=== PATIENT | male | born 1930 | race Asian ===

== ENCOUNTER 2017-09-28 12:43 | Inpatient (IN) | payer OTHER ==
[~2017-09-28] VITALS: Ht 170.2 cm; Wt 60.3 kg
[2017-09-28 14:49] LABS: microscopic required? NO
[2017-09-28 14:58] LABS: urine erythrocyte NEGATIVE (NEGATIVE)
[2017-09-28 15:22] LABS: BASOPHIL % 0.3 % (0-2); PLATELET COUNT 133 x10^3mcL (130-400); RED CELL DISTRIBUTION WIDTH 13.5 % (11.5-14.5)
[2017-09-28] MEDS ORDERED: ZOLOFT50 MG PO (15:35)
[2017-09-28] MEDS ORDERED: ALENDRONATE SOD70 M2 PO (15:35)
[2017-09-28] MEDS ORDERED: ENABLEX15 M1 PO (15:35)
[2017-09-28] MEDS ORDERED: NAMENDA XR28 MG PO (15:37)
[2017-09-28] MEDS ORDERED: NATURE'S BLEND500 M3 PO (15:39)
[2017-09-28] MEDS ORDERED: PATADAY2.5 ML OU (15:41)
[2017-09-28] MEDS ORDERED: CLOPIDOGREL75 M1 PO (15:41)
[2017-09-28] MEDS ORDERED: TAB-A-VITE1 TA1 PO (15:41)
[2017-09-28 15:42] LABS: CALCIUM 9.4 mg/dL (8.5-10.1); CARBON DIOXIDE 27.1 mmol/L (21-32); CHLORIDE SERUM 108 mmol/L (98-107); GLUCOSE SERUM 107 mg/dL (74-106); POTASSIUM SERUM 4.1 mmol/L (3.5-5.1); SODIUM SERUM 142 mmol/L (136-145)
[2017-09-28 16:02] LABS: ALKALINE PHOSPHATASE 106 U/L (46-116); ALT/SGPT 17 U/L (16-63); AST/SGOT 22 U/L (15-37); BILIRUBIN TOTAL 0.39 mg/dL (0.20-1.00)
[2017-09-28 16:16] LABS: ALBUMIN 3.2 g/dL (3.4-5.0)
[2017-09-28 16:17] LABS: CK-MB 3.2 ng/mL (0-3.6)
[2017-09-28 17:04] LABS: T3 TOTAL 0.86 ng/mL
[2017-09-28 17:06] LABS: AMPHETAMINE QUAL UR NONE DETECTED (NEG <=1000)
[2017-09-28 17:15] LABS: CHOLESTEROL/HDL RATIO 3.8; MAGNESIUM 2.3 mg/dL (1.8-2.4); PHOSPHOROUS 1.9 mg/dL (2.5-4.9)
[2017-09-28 17:16] VITALS: BP 156/86
[2017-09-28 17:24] VITALS: Ht 170.2 cm; Wt 60.3 kg
[2017-09-28 17:24] LABS: FREE T4 0.85 ng/dL (0.76-1.46); FREE THYROXINE INDEX 2.3 ug/dL (1.4-4.5); T4(THYROXINE) 6.8 ug/dL (4.7-13.3)
[2017-09-28 21:01] VITALS: BP 148/72
[2017-09-29] VITALS (7 sets, daily range): BP systolic 123–172; BP diastolic 64–97
[2017-09-29 06:35] LABS: CALCIUM 8.6 mg/dL (8.5-10.1); CARBON DIOXIDE 25.2 mmol/L (21-32); CHLORIDE SERUM 110 mmol/L (98-107); GLUCOSE SERUM 104 mg/dL (74-106); POTASSIUM SERUM 3.7 mmol/L (3.5-5.1); SODIUM SERUM 143 mmol/L (136-145)
[2017-09-29 06:51] LABS: BASOPHIL % 0.6 % (0-2); PLATELET COUNT 134 x10^3mcL (130-400); RED CELL DISTRIBUTION WIDTH 13.8 % (11.5-14.5)
[2017-09-30 06:20] VITALS: BP 137/64
[2017-09-30 06:35] LABS: BASOPHIL % 0.4 % (0-2); PLATELET COUNT 153 x10^3mcL (130-400); RED CELL DISTRIBUTION WIDTH 13.7 % (11.5-14.5)
[2017-09-30 06:54] LABS: CHLORIDE SERUM 108 mmol/L (98-107); CREATININE SERUM 1.2 mg/dL (0.7-1.3); GLUCOSE SERUM 132 mg/dL (74-106); POTASSIUM SERUM 3.5 mmol/L (3.5-5.1); SODIUM SERUM 142 mmol/L (136-145)
[2017-09-30] MEDS ORDERED: XARELTO15 M1 PO (09:13)
[2017-09-30 11:26] VITALS: BP 137/64
[2017-09-30] MEDS ORDERED: LOSARTAN POTASS50 M1 PO (11:35)
== END 2017-09-30 13:20 | disposition home health service (06) | DRG 299 ==
LOC: ED 12:43 → DU 15:57
PROVIDERS: Emergency Medicine; Family Medicine
DX: I82.411 Acute embolism and thrombosis of right femoral vein (principal); N17.0 Acute kidney failure with tubular necrosis; G30.9 Alzheimer's disease, unspecified; F02.80 Dementia in other diseases classified elsewhere, unspecified severity, without behavioral disturbance, psychotic disturbance, mood disturbance, and anxiety; I16.0 Hypertensive urgency; I10 Essential (primary) hypertension; E86.0 Dehydration; E83.39 Other disorders of phosphorus metabolism; F32.9 Major depressive disorder, single episode, unspecified; M81.0 Age-related osteoporosis without current pathological fracture; D63.8 Anemia in other chronic diseases classified elsewhere; E78.5 Hyperlipidemia, unspecified; N32.81 Overactive bladder; Z68.20 Body mass index [BMI] 20.0-20.9, adult; Z85.46 Personal history of malignant neoplasm of prostate
CPT/HCPCS: 83880; 84439; J1200; J1644; J2310; J7030; Q0092

== ENCOUNTER 2018-10-17 13:41 | Inpatient (IN) | payer OTHER ==
[~2018-10-17] VITALS: Ht 170.2 cm; Wt 55.9 kg
[~2018-10-17 13:41] MED LIST: ALENDRONATE SOD70 M2 PO; CLOPIDOGREL75 M1 PO; ENABLEX15 M1 PO; LOSARTAN POTASS50 M1 PO; NAMENDA XR28 MG PO; NATURE'S BLEND500 M3 PO; PATADAY2.5 ML OU; TAB-A-VITE1 TA1 PO; XARELTO15 M1 PO; ZOLOFT50 MG PO
[2018-10-17 14:43] VITALS: Ht 170.2 cm; Wt 55.9 kg
[2018-10-17 15:59] LABS: PLATELET COUNT 149 x10^3mcL (130-400); RED CELL DISTRIBUTION WIDTH 14.1 % (11.5-14.5)
[2018-10-17 16:26] LABS: ALKALINE PHOSPHATASE 100 U/L (46-116); ALT/SGPT 23 U/L (16-63); AST/SGOT 34 U/L (15-37); CALCIUM 8.4 mg/dL (8.5-10.1); CARBON DIOXIDE 28.7 mmol/L (21-32); CHLORIDE SERUM 103 mmol/L (98-107); CREATININE SERUM 1.4 mg/dL (0.7-1.3); FREE T4 0.99 ng/dL (0.76-1.46); GLUCOSE SERUM 187 mg/dL (74-106); LIPASE 55 IU/L (73-393); SODIUM SERUM 141 mmol/L (136-145); TOTAL PROTEIN, SERUM 6.5 g/dL (6.4-8.2)
[2018-10-17 16:29] LABS: ALBUMIN 2.8 g/dL (3.4-5.0)
[2018-10-17 16:30] LABS: POTASSIUM SERUM 2.3 mmol/L (3.5-5.1)
[2018-10-17 16:34] LABS: BAND NEUTROPHIL 8 % (0-10); METAMYELOCTE 7 % (0-2); MONOCYTE 4 % (0-7); MYELOCYTE 1 % (0-2); SEGMENTED NEUTROPHILS 79 % (37-75)
[2018-10-17 16:35] LABS: rbc morphology (normal/abnorm) NORMAL (NORMAL)
[2018-10-17 16:36] LABS: PLATELET MORPHOLOGY FEW LARGE PLATELET
[2018-10-17 16:45] LABS: microscopic required? YES; urine erythrocyte NEGATIVE (NEGATIVE)
[2018-10-17 17:08] VITALS: BP 126/62
[2018-10-17 17:11] LABS: AMPHETAMINE QUAL UR NONE DETECTED (See below)
[2018-10-17 17:30] LABS: CHOLESTEROL/HDL RATIO 2.5; MAGNESIUM 1.7 mg/dL (1.8-2.4)
[2018-10-17 17:33] LABS: PHOSPHOROUS 0.7 mg/dL (2.5-4.9)
[2018-10-17 18:25] VITALS: BP 118/58
[2018-10-17] MEDS ORDERED: XARELTO10 M1 PO (19:06)
[2018-10-17 21:07] VITALS: BP 111/59
[2018-10-18 05:28] VITALS: BP 75/38
[2018-10-18 05:30] VITALS: BP 101/45
[2018-10-18 07:11] LABS: ALKALINE PHOSPHATASE 69 U/L (46-116); ALT/SGPT 28 U/L (16-63); AST/SGOT 65 U/L (15-37); BILIRUBIN TOTAL 0.77 mg/dL (0.20-1.00); CALCIUM 7.1 mg/dL (8.5-10.1); CARBON DIOXIDE 20.9 mmol/L (21-32); CHLORIDE SERUM 109 mmol/L (98-107); CREATININE SERUM 1.5 mg/dL (0.7-1.3); GLUCOSE SERUM 95 mg/dL (74-106); SODIUM SERUM 143 mmol/L (136-145)
[2018-10-18 07:12] LABS: TOTAL PROTEIN, SERUM 4.8 g/dL (6.4-8.2)
[2018-10-18 07:13] LABS: POTASSIUM SERUM 2.7 mmol/L (3.5-5.1)
[2018-10-18 07:17] LABS: MAGNESIUM 2.1 mg/dL (1.8-2.4); PHOSPHOROUS 2.3 mg/dL (2.5-4.9)
[2018-10-18 07:55] LABS: RED CELL DISTRIBUTION WIDTH 14.3 % (11.5-14.5)
[2018-10-18 08:06] LABS: PLATELET COUNT 86 x10^3mcL (130-400)
[2018-10-18 09:42] VITALS: BP 95/43
[2018-10-18 11:00] LABS: ATYPICAL LYMPH 1 %; BAND NEUTROPHIL 22 % (0-10); BASOPHIL 0 % (0-2); MONOCYTE 5 % (0-7); SEGMENTED NEUTROPHILS 66 % (37-75)
[2018-10-18 11:01] LABS: rbc morphology (normal/abnorm) ABNORMAL (NORMAL)
[2018-10-18 11:02] LABS: PLATELET MORPHOLOGY PLATELETS DECREASED; acanthocyte (spur cell) 1+
[2018-10-18 12:25] VITALS: BP 136/79
[2018-10-18 18:15] VITALS: BP 157/85
[2018-10-18 20:43] VITALS: BP 137/82
[2018-10-19 05:55] VITALS: BP 125/72
[2018-10-19 06:28] LABS: PLATELET COUNT 59 x10^3mcL (130-400); RED CELL DISTRIBUTION WIDTH 14.9 % (11.5-14.5)
[2018-10-19 06:48] LABS: CALCIUM 6.6 mg/dL (8.5-10.1); CARBON DIOXIDE 21.8 mmol/L (21-32); CHLORIDE SERUM 112 mmol/L (98-107); CREATININE SERUM 1.4 mg/dL (0.7-1.3); GLUCOSE SERUM 195 mg/dL (74-106); MAGNESIUM 2.2 mg/dL (1.8-2.4); SODIUM SERUM 145 mmol/L (136-145)
[2018-10-19 08:15] VITALS: BP 144/70
[2018-10-19 11:13] LABS: BAND NEUTROPHIL 40 % (0-10); BASOPHIL 0 % (0-2); METAMYELOCTE 1 % (0-2); MONOCYTE 1 % (0-7); MYELOCYTE 1 % (0-2); SEGMENTED NEUTROPHILS 50 % (37-75)
[2018-10-19 11:14] LABS: PLATELET MORPHOLOGY LARGE PLATELET SEEN; burr cell (echinocyte) 1+; ovalocyte/elliptocyte 1+; rbc morphology (normal/abnorm) ABNORMAL (NORMAL)
[2018-10-19 13:25] VITALS: BP 159/80
[2018-10-19 17:58] VITALS: BP 142/83
[2018-10-20 04:56] VITALS: BP 148/77
[2018-10-20 06:57] LABS: CALCIUM 7.4 mg/dL (8.5-10.1); CARBON DIOXIDE 20.3 mmol/L (21-32); CHLORIDE SERUM 112 mmol/L (98-107); CREATININE SERUM 1.3 mg/dL (0.7-1.3); GLUCOSE SERUM 135 mg/dL (74-106); MAGNESIUM 2.4 mg/dL (1.8-2.4); SODIUM SERUM 147 mmol/L (136-145)
[2018-10-20 07:14] LABS: PHOSPHOROUS 0.9 mg/dL (2.5-4.9); POTASSIUM SERUM 2.8 mmol/L (3.5-5.1)
[2018-10-20 07:32] LABS: PLATELET COUNT 62 x10^3mcL (130-400); RED CELL DISTRIBUTION WIDTH 15.3 % (11.5-14.5)
[2018-10-20 09:00] VITALS: BP 165/93
[2018-10-20 09:45] LABS: BAND NEUTROPHIL 37 % (0-10); BASOPHIL 0 % (0-2); METAMYELOCTE 2 % (0-2); MONOCYTE 2 % (0-7); MYELOCYTE 1 % (0-2); SEGMENTED NEUTROPHILS 49 % (37-75); burr cell (echinocyte) 1+; ovalocyte/elliptocyte 1+; rbc morphology (normal/abnorm) ABNORMAL (NORMAL)
[2018-10-20 12:06] LABS: PLATELET COUNT 53 x10^3mcL (130-400); RED CELL DISTRIBUTION WIDTH 14.9 % (11.5-14.5)
[2018-10-20 13:05] VITALS: BP 176/91
[2018-10-20 13:18] LABS: BAND NEUTROPHIL 25 % (0-10); BASOPHIL 0 % (0-2); METAMYELOCTE 1 % (0-2); MONOCYTE 2 % (0-7); MYELOCYTE 1 % (0-2); SEGMENTED NEUTROPHILS 65 % (37-75)
[2018-10-20 13:19] LABS: burr cell (echinocyte) 1+; rbc morphology (normal/abnorm) ABNORMAL (NORMAL)
[2018-10-20 13:20] LABS: ovalocyte/elliptocyte 1+
[2018-10-20 16:00] VITALS: BP 167/80
[2018-10-20 20:18] VITALS: BP 154/94
[2018-10-21] VITALS (8 sets, daily range): BP systolic 154–170; BP diastolic 83–100
[2018-10-21 08:02] LABS: CALCIUM 7.4 mg/dL (8.5-10.1); CARBON DIOXIDE 20.1 mmol/L (21-32); CHLORIDE SERUM 119 mmol/L (98-107); GLUCOSE SERUM 169 mg/dL (74-106); MAGNESIUM 2.1 mg/dL (1.8-2.4); PHOSPHOROUS 1.3 mg/dL (2.5-4.9); POTASSIUM SERUM 3.6 mmol/L (3.5-5.1); SODIUM SERUM 150 mmol/L (136-145)
[2018-10-21 09:29] LABS: PLATELET COUNT 48 x10^3mcL (130-400); RED CELL DISTRIBUTION WIDTH 15.1 % (11.5-14.5)
[2018-10-21 14:08] LABS: BAND NEUTROPHIL 15 % (0-10); SEGMENTED NEUTROPHILS 70 % (37-75)
[2018-10-21 14:09] LABS: MONOCYTE 7 % (0-7); burr cell (echinocyte) 1+; rbc morphology (normal/abnorm) ABNORMAL (NORMAL)
[2018-10-21 14:10] LABS: PLATELET MORPHOLOGY LARGE PLATELET SEEN
[2018-10-22 05:37] VITALS: BP 174/98
[2018-10-22 06:16] VITALS: BP 136/71
[2018-10-22 06:39] LABS: CALCIUM 7.3 mg/dL (8.5-10.1); CARBON DIOXIDE 20.3 mmol/L (21-32); CHLORIDE SERUM 115 mmol/L (98-107); CREATININE SERUM 0.9 mg/dL (0.7-1.3); GLUCOSE SERUM 109 mg/dL (74-106); MAGNESIUM 1.8 mg/dL (1.8-2.4); POTASSIUM SERUM 3.4 mmol/L (3.5-5.1); SODIUM SERUM 148 mmol/L (136-145)
[2018-10-22 07:29] LABS: RED CELL DISTRIBUTION WIDTH 13.9 % (11.5-14.5)
[2018-10-22 08:32] LABS: PLATELET COUNT 43 x10^3mcL (130-400)
[2018-10-22 13:15] VITALS: BP 117/70
[2018-10-22 14:27] LABS: BAND NEUTROPHIL 14 % (0-10); SEGMENTED NEUTROPHILS 64 % (37-75)
[2018-10-22 14:28] LABS: MONOCYTE 10 % (0-7); rbc morphology (normal/abnorm) NORMAL (NORMAL)
[2018-10-22 14:30] LABS: schistocyte (helmet cell) 1+
[2018-10-22 14:31] LABS: PLATELET MORPHOLOGY LARGE PLATELET SEEN
[2018-10-22 17:45] VITALS: BP 117/70
[2018-10-22 21:33] VITALS: BP 157/95
[2018-10-23 00:30] VITALS: BP 148/83
[2018-10-23 05:53] VITALS: BP 143/81
[2018-10-23 07:20] LABS: CALCIUM 7.2 mg/dL (8.5-10.1); CARBON DIOXIDE 20.9 mmol/L (21-32); CHLORIDE SERUM 110 mmol/L (98-107); CREATININE SERUM 0.9 mg/dL (0.7-1.3); GLUCOSE SERUM 122 mg/dL (74-106); MAGNESIUM 1.7 mg/dL (1.8-2.4); POTASSIUM SERUM 3.6 mmol/L (3.5-5.1); SODIUM SERUM 141 mmol/L (136-145)
[2018-10-23 07:39] LABS: RED CELL DISTRIBUTION WIDTH 14.1 % (11.5-14.5)
[2018-10-23 08:23] LABS: BASOPHIL % 0 % (0-2); PLATELET COUNT 53 x10^3mcL (130-400)
[2018-10-23 09:30] VITALS: BP 154/84
[2018-10-23] MEDS ORDERED: LEVAQUIN750 MG PO (10:10)
[2018-10-23 13:04] VITALS: BP 154/84
[2018-10-23 18:56] VITALS: BP 129/70
[2018-10-23 21:16] VITALS: BP 148/77
[2018-10-24 05:39] VITALS: BP 141/74
[2018-10-24 09:20] VITALS: BP 122/55
[2018-10-24 09:38] LABS: ALKALINE PHOSPHATASE 76 U/L (46-116); ALT/SGPT 29 U/L (16-63); AST/SGOT 30 U/L (15-37); BILIRUBIN DIRECT 0.21 mg/dL (0.0-0.2); BILIRUBIN TOTAL 0.64 mg/dL (0.20-1.00); CALCIUM 7.4 mg/dL (8.5-10.1); CARBON DIOXIDE 21.1 mmol/L (21-32); CHLORIDE SERUM 112 mmol/L (98-107); CREATININE SERUM 0.9 mg/dL (0.7-1.3); GLUCOSE SERUM 176 mg/dL (74-106); POTASSIUM SERUM 3.8 mmol/L (3.5-5.1); SODIUM SERUM 142 mmol/L (136-145)
[2018-10-24 09:39] LABS: ALBUMIN 1.9 g/dL (3.4-5.0); TOTAL PROTEIN, SERUM 5.5 g/dL (6.4-8.2)
[2018-10-24 11:36] LABS: BAND NEUTROPHIL 1 % (0-10); BASOPHIL 0 % (0-2); MONOCYTE 2 % (0-7); SEGMENTED NEUTROPHILS 96 % (37-75)
[2018-10-24 11:38] LABS: PLATELET MORPHOLOGY PLATELETS DECREASED; rbc morphology (normal/abnorm) NORMAL (NORMAL)
[2018-10-24 14:53] LABS: BASOPHIL % 0 % (0-2); PLATELET COUNT 89 x10^3mcL (130-400); RED CELL DISTRIBUTION WIDTH 14.9 % (11.5-14.5)
[2018-10-24 20:35] VITALS: BP 135/81
[2018-10-25 05:36] VITALS: BP 167/88
[2018-10-25 06:54] LABS: BASOPHIL % 0 % (0-2); PLATELET COUNT 102 x10^3mcL (130-400); RED CELL DISTRIBUTION WIDTH 15.3 % (11.5-14.5)
[2018-10-25 07:00] LABS: CALCIUM 7.6 mg/dL (8.5-10.1); CARBON DIOXIDE 20.5 mmol/L (21-32); CHLORIDE SERUM 110 mmol/L (98-107); GLUCOSE SERUM 143 mg/dL (74-106); POTASSIUM SERUM 3.7 mmol/L (3.5-5.1); SODIUM SERUM 143 mmol/L (136-145)
[2018-10-25 07:25] VITALS: BP 147/73
[2018-10-25 11:55] VITALS: BP 120/70
[2018-10-25 18:00] VITALS: BP 135/83
[2018-10-25 21:45] VITALS: BP 132/68
[2018-10-26 05:43] VITALS: BP 153/90
[2018-10-26 06:40] LABS: CALCIUM 7.5 mg/dL (8.5-10.1); CARBON DIOXIDE 24.3 mmol/L (21-32); CHLORIDE SERUM 109 mmol/L (98-107); CREATININE SERUM 0.9 mg/dL (0.7-1.3); GLUCOSE SERUM 104 mg/dL (74-106); POTASSIUM SERUM 3.2 mmol/L (3.5-5.1); SODIUM SERUM 143 mmol/L (136-145)
[2018-10-26 07:37] LABS: PLATELET COUNT 137 x10^3mcL (130-400); RED CELL DISTRIBUTION WIDTH 14.4 % (11.5-14.5)
[2018-10-26 07:42] LABS: BASOPHIL % 0 % (0-2)
[2018-10-26 07:45] VITALS: BP 141/80
[2018-10-26 16:09] VITALS: BP 102/55
[2018-10-26 20:42] VITALS: BP 120/66
[2018-10-27 05:44] VITALS: BP 118/63
[2018-10-27 06:01] LABS: BASOPHIL % 0.2 % (0-2); PLATELET COUNT 169 x10^3mcL (130-400)
[2018-10-27 06:21] LABS: CALCIUM 7.4 mg/dL (8.5-10.1); CARBON DIOXIDE 23.2 mmol/L (21-32); CHLORIDE SERUM 112 mmol/L (98-107); CREATININE SERUM 0.9 mg/dL (0.7-1.3); GLUCOSE SERUM 119 mg/dL (74-106); POTASSIUM SERUM 4.3 mmol/L (3.5-5.1); SODIUM SERUM 143 mmol/L (136-145)
[2018-10-27 06:34] LABS: RED CELL DISTRIBUTION WIDTH 15.3 % (11.5-14.5)
[2018-10-27 08:44] VITALS: BP 131/64
[2018-10-27 10:49] VITALS: BP 131/64
[2018-10-27 17:08] VITALS: BP 133/71
[2018-10-27 20:52] VITALS: BP 145/76
[2018-10-28 06:33] VITALS: BP 141/80
[2018-10-28 09:01] VITALS: BP 139/76
[2018-10-28 17:45] VITALS: BP 132/71
[2018-10-28 21:17] VITALS: BP 150/87
[2018-10-29 05:58] VITALS: BP 154/75
[2018-10-29 07:41] LABS: CALCIUM 7.1 mg/dL (8.5-10.1); CARBON DIOXIDE 22.7 mmol/L (21-32); CHLORIDE SERUM 101 mmol/L (98-107); CREATININE SERUM 0.6 mg/dL (0.7-1.3); GLUCOSE SERUM 96 mg/dL (74-106); POTASSIUM SERUM 3.9 mmol/L (3.5-5.1); SODIUM SERUM 134 mmol/L (136-145)
[2018-10-29 07:50] LABS: PLATELET COUNT 218 x10^3mcL (130-400)
[2018-10-29 07:52] LABS: RED CELL DISTRIBUTION WIDTH 14.7 % (11.5-14.5)
[2018-10-29 09:35] VITALS: BP 126/84
[2018-10-29 09:39] LABS: BAND NEUTROPHIL 1 % (0-10); BASOPHIL 0 % (0-2); MONOCYTE 11 % (0-7); SEGMENTED NEUTROPHILS 80 % (37-75)
[2018-10-29 09:41] LABS: PLATELET MORPHOLOGY PLATELETS DECREASED; acanthocyte (spur cell) 1+; burr cell (echinocyte) 1+; rbc morphology (normal/abnorm) ABNORMAL (NORMAL)
[2018-10-29 13:01] VITALS: BP 126/84
[2018-10-29] MEDS ORDERED: UNA1I IV (13:31)
[2018-10-29 17:42] VITALS: BP 154/77
[2018-10-29 21:10] VITALS: BP 156/68
[2018-10-30 05:25] VITALS: BP 127/71
[2018-10-30 09:47] VITALS: BP 128/69
[2018-10-30 17:57] VITALS: BP 126/84
== END 2018-10-30 19:05 | DRG 871 ==
LOC: ED 13:41 → DU 16:40 → MU 16:40 → DU 17:52 → MU 10-23 17:26
PROVIDERS: Emergency Medicine; General Practice; Internal Medicine Gastroenterology; ADMIT Internal Medicine
PROC: 0F798DZ Dilation of Common Bile Duct with Intraluminal Device, Via Natural or Artificial Opening Endoscopic (ICD-10-PCS; principal; 2018-10-20 14:00)
PROC: BF101ZZ Fluoroscopy of Bile Ducts using Low Osmolar Contrast (ICD-10-PCS; 2018-10-20 14:00)
DX: A41.9 Sepsis, unspecified organism (principal); N17.0 Acute kidney failure with tubular necrosis; J69.0 Pneumonitis due to inhalation of food and vomit; E43 Unspecified severe protein-calorie malnutrition; Z68.1 Body mass index [BMI] 19.9 or less, adult; K83.09 Other cholangitis; K81.9 Cholecystitis, unspecified; G30.9 Alzheimer's disease, unspecified; F02.80 Dementia in other diseases classified elsewhere, unspecified severity, without behavioral disturbance, psychotic disturbance, mood disturbance, and anxiety; E87.6 Hypokalemia; E83.39 Other disorders of phosphorus metabolism; E83.42 Hypomagnesemia; I10 Essential (primary) hypertension; Z66 Do not resuscitate; Z79.01 Long term (current) use of anticoagulants; Z86.718 Personal history of other venous thrombosis and embolism
CPT/HCPCS: 43260; 78226; 82962; 83880; 84439; 87804; 90732; 92526-GN; 92610; 97110-GP; 97112-GP; 97116-GP; 97530-GP; A9537; C1751; C1769; C2625; J0290; J0295; J0360; J0744; J1200; J1580; J1610; J1940; J2060; J2270; J2543; J2704; J3370; J3475; J3480; J3490; J7030; J7040; J7050; J7620; Q0092; Q9967

== ENCOUNTER 2018-11-07 18:52 | Inpatient (IN) | payer OTHER | END 2018-11-10 14:22 | LOC: ED 18:52 → DU 21:55 → ED 18:52 → DU 21:55 → ED 18:52 → DU 21:55 → ED 18:52 → DU 21:55 | DX: N17.0 Acute kidney failure with tubular necrosis (principal); G93.41 Metabolic encephalopathy; E43 Unspecified severe protein-calorie malnutrition; Z68.1 Body mass index [BMI] 19.9 or less, adult; E87.1 Hypo-osmolality and hyponatremia; G30.9 Alzheimer's disease, unspecified; E86.0 Dehydration; E11.65 Type 2 diabetes mellitus with hyperglycemia; I10 Essential (primary) hypertension; F02.80 Dementia in other diseases classified elsewhere, unspecified severity, without behavioral disturbance, psychotic disturbance, mood disturbance, and anxiety; R80.9 Proteinuria, unspecified; E83.39 Other disorders of phosphorus metabolism; E83.41 Hypermagnesemia; Z66 Do not resuscitate; Z79.01 Long term (current) use of anticoagulants; Z86.718 Personal history of other venous thrombosis and embolism ==